=== PATIENT | male | born 1995 | race Two or more races ===

== ENCOUNTER 2017-04-25 00:58 | Emergency (ER) | payer BC ==
--- NOTE | 2017-04-25 04:34 | ER ---
ADMIT: 04/25/2017 RM/LOC: ER [facility] MR#: [id number] [facility] [id number] JAZMINE MATTHEW [address] [place] [address] Emergency Room Report SEX: M AGE: 21 : 1995 DATE: 04/25/2017 The patient is a 21-year-old male, complaining of painful spider bite for the past 3 days. Exam remarkable for nontoxic, afebrile male with indurated weeping wound right flank with surrounding cellulitis approximately 5 cm. No foreign body noted. Wound cleansed, covered with bacitracin, Band-Aid, Keflex 500 mg 2 p.o. stat, and 1 p.o. q.i.d. #40, and doxycycline 200 mg p.o. stat and 100 mg b.i.d. x10 days. Bactroban ointment t.i.d. x1 week. Dispensed [address] Garcia as needed. Bernardo Christian MD/ vinh JOB #: [id number] CC: Bernardo Christian MD, Attending Physician Harvey Garcia MD, Family Physician Harvey Garcia MD
== END 2017-04-25 01:47 | disposition home or self-care (01) ==
LOC: ER 00:58
DX: L03.311 Cellulitis of abdominal wall (principal); F17.210 Nicotine dependence, cigarettes, uncomplicated; F90.9 Attention-deficit hyperactivity disorder, unspecified type; W57.XXXA Bitten or stung by nonvenomous insect and other nonvenomous arthropods, initial encounter